=== PATIENT | female | born 1985 | race Caucasian/White ===

== ENCOUNTER 2022-09-03 02:25 | Inpatient (IN) ==
[2022-09-03] MEDS ORDERED: PENICILLIN G POTASSIUM 6 MU in DEXTROSE 5% 250 ML IV STA (02:48)
[2022-09-03] MEDS ORDERED: LIDOCAINE 1% LOCAL 20 ML VIAL INFIL PRN (02:48)
[2022-09-03] MEDS ORDERED: OXYTOCIN 30 UNITS/500 ML BAG IV PRN ×2 (02:48→03:57)
[2022-09-03] MEDS ORDERED: LACTATED RINGER'S 1,000 ML IV PRN (02:48)
--- NOTE | 2022-09-03 03:34 | Delivery Summary ---
Vaginal Delivery Summary Date of Service September 03, 2022 Vaginal Delivery Summary 36yo at 40+wks siva presents to L&D with regular ctx. On arrival cx exam was 5cm and rapidly progressed to fully dilated. Unclear time of rom. Began 2nd stage and was encouraged to push due to deep decels in 50s. The patient pushed over approximately 3 contractions to deliver a viable male Apgars 8 and 9 via over intact perineum. Loose nuchal x 1 reduced. Copious yellow thick stained fluid noted and patient encouraged to continue to push to deliver shoulders and body. Mouth and nose bulb suctioned. was vigorous and crying at . Cord clamped at 20 seconds of life and infant to maternal abdomen where the cord was then doubly clamped and cut. Placenta delivered spontaneously and intact, three-vessel cord. Hemostasis achieved with IM pitocin and uterine massage. Cervix and sulci intact. EBL 300 cc. Mother and baby stable in recovery. Will obtain iv site for dilute pitocin and obtain labs. Patient denies rom prior to arrival and denies fever or pain. Will send placenta for evaluation. [facility] [place] Vaginal Delivery Charge Delivery Type Details:
[2022-09-03] MEDS ORDERED: DIPHTHERIA/TETANUS/PERTUSSIS 0.5mL SYR/VIAL (Age 7+yrs) IM ONE (03:57)
[2022-09-03] MEDS ORDERED: ACETAMINOPHEN 325 MG TAB PO PRN (03:57)
[2022-09-03] MEDS ORDERED: oxyCODONE/ACETAMINOPHEN 5mg/325mg TAB PO PRN (03:57)
[2022-09-03] MEDS ORDERED: OXYTOCIN 20 UNITS in LACTATED RINGER'S 1,000 ML IV SCH (03:57)
[2022-09-03] MEDS ORDERED: BENZOCAINE 20% AER SPR 82.5 GM CAN EXT PRN (03:57)
[2022-09-03] MEDS ORDERED: OXYTOCIN 10 UNITS/ML 10ML VIAL IM ONE (03:57)
[2022-09-03] MEDS ORDERED: HYDROCORTISONE ACETATE 25 MG SUPP PR PRN (03:57)
[2022-09-03 04:28] LABS: Hematocrit (blood only) 42.9 % (37.0-47.0); Hemoglobin 14.4 g/dl (12.0-16.0); Mean Corpuscular Hemoglobin 29.9 pg (25.0-34.0); Mean Corpuscular Hgb Conc 33.6 g/dL (32.0-36.0); Mean Corpuscular Volume 89.2 fL (80.0-100.0); Mean Platelet Volume 12.7 fL (9.4-12.4); Platelet Count 193 K/uL (130-400); RDW Coefficient of Variation 14.1 % (11.5-14.5); RDW Standard Deviation 45.6 fL (36.4-46.3); Red Blood Count 4.81 M/uL (4.20-5.40); White Blood Count 16.63 K/ul (4.8-10.8)
[2022-09-03] MEDS: IBUPROFEN 600 MG TAB PO PRN ×4 (05:18→23:38)
[2022-09-03] MEDS ORDERED: PENICILLIN G POTASSIUM 3 MU in DEXTROSE 5% 100 ML IV PRN (05:48)
[2022-09-03] MEDS: PRENATAL VITAMIN 1 TAB PO SCH (09:51)
[2022-09-03] MEDS: DOCUSATE SODIUM 100 MG CAP PO SCH ×2 (09:52→19:48)
[2022-09-04] MEDS: IBUPROFEN 600 MG TAB PO PRN ×2 (03:40→08:57)
--- NOTE | 2022-09-04 06:08 | Obstetrical Progress Note ---
Date of Service September 04, 2022 Assessment & Plan (1) Encounter for supervision of normal in multigravida, antepartum: (2) Gestational diabetes mellitus (GDM) affecting , antepartum: Plan Ilene is a 36 y/o female who is PPD #1 following delivery at 40+ weeks. -Meeting all milestones -Vital signs reviewed and WNL -O+/GBS positive/Rubella immune, received Penicillin in labor -Follow up in 6 weeks for appointment -Continue routine care -Anticipate discharge later today Admission and Anticipated Discharge Date Admission Date: September 03, 2022 Supervising Physician Co-Signing Physician Notes Resident Physician Supervision Note: I interviewed and examined the patient. Discussed with Dr. Vidal and agree with findings and plan as documented in the note. Any exceptions or clarifications are listed here: PP1 s/p , doing well. VSS, exam benign and wnl. Desires dc home, stable to do so Documented By: Lena Monique MD Subjective Ilene is a 36 y/o female who is PPD #1 following delivery at 40+ weeks. She reports feeling well overall this morning. Has abdominal cramping but pain is currently managed. Voiding without issue. Tolerating meals overnight and able to ambulate some. Has some persistent lochia with some improvement this morning. Currently breast feeding. Review of Systems Constitutional: no fever, no chills and no sweats Respiratory: no cough, no dyspnea and no wheezing Cardiovascular: no chest pain, no palpitations and no calf pain Genitourinary: no dysuria Neurologic: no headache(s) Physical Exam Constitutional: WD/WN, vitals as above no acute distress Respiratory: no respiratory distress Auscultation: lungs clear to auscultation bilaterally; no rales, no rhonchi and no wheezes Cardiovascular: RRR, no murmur, no edema Extremities: no calf tenderness and no edema Negative Daina's sign bilaterally. Gastrointestinal (Abdomen): Inspection/Auscultation: normal bowel sounds Genitourinary: Uterine fundus firm, palpable below the umbilicus. Results & Data Vital Signs (Past 12 Hours) Vital Signs Temp Pulse Resp BP Pulse Ox O2 Del Method 09/04/22 03:30 36.5 C 72 18 116/75 97 Room Air 09/03/22 23:30 36.5 C 72 18 117/76 100 Room Air 09/03/22 19:50 36.5 C 80 18 105/71 97 Room Air Resident Activity Tracking Resident Involvement: Resident Care Provided Care Provided: OB Delivery
[2022-09-04] MEDS: DOCUSATE SODIUM 100 MG CAP PO SCH (08:57)
[2022-09-04] MEDS: PRENATAL VITAMIN 1 TAB PO SCH (08:57)
[2022-09-05] MEDS ORDERED: bisacodyL 10 MG SUPP PR PRN (03:57)
[2022-09-06] MEDS ORDERED: bisacodyL 10 MG SUPP PR PRN (03:57)
== END 2022-09-04 12:45 | disposition home or self-care (01) | DRG 807 ==
LOC: OPB 02:25 → 4S1 02:29 → 4E2 06:06